=== PATIENT | female | born 1985 | race Caucasian/White ===

== ENCOUNTER 2018-09-12 08:45 | Inpatient (IN) | payer OTHER ==
[2018-09-12] MEDS ORDERED: DEXTROSE 5%-LACTATED RINGERS 1,000 ML IV SCH (08:50)
[2018-09-12] MEDS ORDERED: OXYTOCIN 20 UNITS in 0.9% NS 20 UNIT/1,000 ML INFUS.BAG IV ONE ×2 (08:59→10:48)
[2018-09-12 09:12] LABS: BASO % 0.8 % (0-2.0); EOS % 0.1 % (0-4.5); HEMOGLOBIN 14.1 GM/dL (10.7-15.3); LYMPH % 14.8 % (8-40); MCH 31.7 pg (25.7-33.7); MCHC 34.4 g/dl (32.0-36.0); MEAN CELL VOLUME 92.2 fl (80-96); MEAN PLT VOLUME 8.3 fl (7.5-11.1); MONO % 3.5 % (3.8-10.2); NEUT % 80.8 % (42.8-82.8); PLATELET COUNT 235 K/MM3 (134-434); RBC 4.45 M/mm3 (3.60-5.2); RDW 13.9 % (11.6-15.6); WHITE BLOOD COUNT 10.2 K/mm3 (4.0-10.0)
[2018-09-12] MEDS: OXYTOCIN 20 UNITS in 0.9% NS 20 UNIT/1,000 ML INFUS.BAG IV SCH ×2 (09:15→18:00)
[2018-09-12] MEDS ORDERED: LIDOCAINE HCL 1% PRESERVATIVE FREE - 30ML VIAL ONE (09:15)
[2018-09-12 09:23] VITALS: BMI 39.0
[2018-09-12 09:23] LABS: INR 0.97 (0.83-1.09); PROTHROMBIN TIME (PATIENT) 11.5 SEC (9.7-13.0)
[2018-09-12] MEDS ORDERED: WITCH HAZEL 50% (TUCKS) 40 PAD/JAR PAD TP PRN (09:23)
[2018-09-12] MEDS ORDERED: METHYLERGONOVINE MALEATE 0.2 MG/1 ML AMP IM PRN (09:23)
[2018-09-12] MEDS ORDERED: BENZOCAINE 28 GM HEMORRHOIDAL OINTMENT TP PRN (09:23)
[2018-09-12] MEDS ORDERED: BISACODYL 10 MG SUPP.RECT RC PRN (09:23)
[2018-09-12] MEDS ORDERED: BENZOCAINE 20% 57 GM BOTTLE TP PRN (09:23)
[2018-09-12 09:26] LABS: ACTIVATED PTT 28.3 SECONDS (25.2-36.5)
--- NOTE | 2018-09-12 09:34 | PN ---
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 Meconium noted upon presentation. No anesthesia. Spontaneous delivery of anterior shoulder. Weight pending. Apgars 9/9. Infant placed to Spontaneous delivery intact placenta. 3VC noted. Fundus firm. First degree laceration repaired after 1% local given with 2-0 chromic. Good cosmesis noted. Mother and baby doing well. Karolina Hanson MD
[2018-09-12 09:36] LABS: ANION GAP 12 MMOL/L (8-16); BLOOD UREA NITROGEN 9 mg/dL (7-18); CALCIUM 8.2 mg/dL (8.5-10.1); CHLORIDE 106 mmol/L (98-107); CO2 19 mmol/L (21-32); CREATININE 0.6 mg/dL (0.55-1.3); GLUCOSE,RANDOM 155 mg/dL (74-106); POTASSIUM 3.5 mmol/L (3.5-5.1); SODIUM 136 mmol/L (136-145)
--- NOTE | 2018-09-12 09:38 | HP ---
Past Medical History - Admission Chief Complaint: Labor History of Present Illness: 32yo @ 39+wks here in labor. Regular ctx. +LOF. No VB. +FM Preg c/b prior followed by C/S x 1 for cord prolapse. 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: Alzheimer's, CVA, Dementia, Migraine, Multiple Sclerosis, Peripheral Neuropathy, Parkinson's, Seizure, Syncope, TIA, Vertigo, Other Cardiovascular: No: AFIB, Aneurysm, Aortic Insufficiency, Aortic Stenosis, CAD, CHF, Deep Vein Thrombosis, HTN, Hyperlipdemia, NV, Mitral Insufficiency, Mitral Stenosis, Murmur, Pulmonary Hypertension, Other Pulmonary: No: Asthma, Bronchitis, Cancer, COPD, O2 Dependent, Pneumonia, Previously Intubated, Pulmonary Embolus, Pulmonary Fibrosis, Sleep Apnea, Other Gastrointestinal: No: Ascites, Cancer, Constipation, Crohn's Disease, Diverticulitis, Diverticulosis, Esophageal Varices, Gastritis, GERD, GI Bleed, Hemorrhoids, Hiatal Hernia, Inflamatory Bowel Disease, Irritable Bowel Disease, Pancreatitis, Peptic Ulcer Disease, Ulcerative Colitis, Other ...: 4 ...Para: 2 ...Term: 2 ...: 0 ...Spon : 1 ...Induced : 0 ...Multiple Gestation: 0 ...LMP: 12/09/17 ... Weeks Gestation by Dates: 39.4 ...EDC by Dates: 09/15/18 ...EDC by Sono: 09/15/18 Heme/Onc: No: Anemia, B12 Deficiency, Bleeding Disorder, Cancer, Current Chemotherapy, Current Radiation Therapy, Hemochromatosis, Hypercoaguable State, Myeloproliferative Synd, Sickle Cell Disease, Sickle Cell Trait, Thrombocytopenia, Other Infectious Disease: No: AIDS, C-Diff, Herpes Zoster, HIV, MRSA, STD's, Tuberculosis, VREF, Other Psych: No: Addictions, Anxiety, Bipolar, Depression, Panic, Psychosis, Schizophrenia, Other Musculoskeletal: No: Bursitis, Chronic low back pain, Hemiparesis, Hemiplegia, Osteoarthritis, Paraplegia, Other - Past Surgical History Past Surgical History: Yes: Hx Myomectomy: No Hx Transabdominal Cerclage: No - Smoking History Smoking history: Never smoked Have you smoked in the past 12 months: No - Alcohol/Substance Use Hx Alcohol Use: No History of Substance Use: reports: None - Social History Usual Living Arrangement: Yes: With Spouse History of Recent Travel: No Home Medications - Allergies Allergies/Adverse Reactions: Allergies Allergy/AdvReac Type Severity Reaction Status Date / Time No Known Allergies Allergy Verified 09/12/18 09:29 - Home Medications Home Medications: Ambulatory Orders Prenat 115/Iron Fum/Folic/Dss [ 19 Tablet] 1 tab PO DAILY 09/10/18 Physical Exam - Maternity Vital Signs: Vital Signs Temperature 98.0 F 09/12/18 09:14 Pulse Rate 76 09/12/18 09:14 Respiratory Rate 20 09/12/18 09:14 Blood Pressure 130/83 09/12/18 09:14 O2 Sat by Pulse Oximetry (%) Constitutional: Yes: Well Nourished, No Distress, Calm Eyes: Yes: WNL, Conjunctiva Clear, EOM Intact HENT: Yes: WNL, Atraumatic, Normocephalic Neck: Yes: WNL, Supple, Trachea Midline Cardiovascular: Yes: WNL, Regular Rate and Rhythm Breast(s): Yes: WNL - Abdominal Exam/OB Number of Fetuses: Single Presentation: Vertex Contractions: Yes Regularity: Regular Intensity: Strong Monitor Mode: External Heart Rate (range): Cat I Heart Rate Location: [facility] Category: I Accelerations: Uniform Decelerations: None - Vaginal Exam/OB Vaginal Bleediing: No Speculum Exam: No Dilatation (cm): 10 Effacement (%): 100 Amniotic Membrane Status: Ruptured Amniotic Fluid: Yes: Meconium Stained Meconium: Moderate Presentation: Vertex/Position Station: 0 - Physical Exam Edema: No - Labs Lab Results: CBC, BMP 09/12/18 09:00 Problem List - Problems (1) Uterine contractions Code(s): [id number] - Assessment/Plan 32yo @ 39.4wks here in labor, desires TOLAC. Imminent delivery Admit to L&D Cat I tracing IVFs, NPO Anticipate Neelima Hanson MD
[2018-09-12] MEDS ORDERED: IBUPROFEN 600 MG TABLET (FP) PO ONE (09:59)
[2018-09-12] MEDS ORDERED: ACETAMINOPHEN 325 MG TABLET (FP) ONE (09:59)
[2018-09-12] MEDS: IBUPROFEN 600 MG TABLET (FP) PO PRN ×3 (10:00→18:03)
[2018-09-12] MEDS: ACETAMINOPHEN 325 MG TABLET (FP) PO PRN ×3 (10:00→18:04)
[2018-09-12] MEDS: PRENATAL VITAMINS W/ FOLIC ACID TABLET (FP) PO SCH (11:44)
--- NOTE | 2018-09-13 06:07 | PN ---
Post Progress Note Type of Delivery: Vital Signs: Vital Signs Temperature 98.0 F 09/13/18 02:00 Pulse Rate 77 09/13/18 02:00 Respiratory Rate 18 09/13/18 02:00 Blood Pressure 116/74 09/13/18 02:00 O2 Sat by Pulse Oximetry (%) 98 09/12/18 10:15 Uterus: Yes: Fundus Firm Abdomen/GI: Yes: Abdomen soft Lochia: Yes: Rubra Lochia, amount: Small Extremities: Yes: Calves non-tender Perineum: Yes: Intact, Laceration Activity: Ambulating - Labs Labs: CBC WBC 10.2 K/mm3 (4.0-10.0) H 09/12/18 09:00 RBC 4.45 M/mm3 (3.60-5.2) 09/12/18 09:00 Hgb 14.1 GM/dL (10.7-15.3) 09/12/18 09:00 Hct 41.0 % (32.4-45.2) 09/12/18 09:00 MCV 92.2 fl (80-96) 09/12/18 09:00 MCH 31.7 pg (25.7-33.7) 09/12/18 09:00 MCHC 34.4 g/dl (32.0-36.0) 09/12/18 09:00 RDW 13.9 % (11.6-15.6) 09/12/18 09:00 Plt Count 235 K/MM3 (134-434) 09/12/18 09:00 MPV 8.3 fl (7.5-11.1) 09/12/18 09:00 Absolute Neuts (auto) 8.2 K/mm3 (1.5-8.0) H 09/12/18 09:00 Neutrophils % 80.8 % (42.8-82.8) 09/12/18 09:00 Lymphocytes % 14.8 % (8-40) 09/12/18 09:00 Monocytes % 3.5 % (3.8-10.2) L 09/12/18 09:00 Eosinophils % 0.1 % (0-4.5) 09/12/18 09:00 Basophils % 0.8 % (0-2.0) 09/12/18 09:00 Nucleated RBC % 0 % (0-0) 09/12/18 09:00 Problem List - Problems (1) Uterine contractions Code(s): [id number] - Assessment/Plan 32yo s/p , PPD#1 Routine PP care OOB, ambulate Po pain meds Labs pending Anticipate d/c to home PPD#2 Neelima Hanson MD
[2018-09-13 06:50] LABS: BASO % 0.5 % (0-2.0); EOS % 0.7 % (0-4.5); HEMATOCRIT 36.9 % (32.4-45.2); HEMOGLOBIN 12.7 GM/dL (10.7-15.3); LYMPH % 21.7 % (8-40); MCH 31.6 pg (25.7-33.7); MCHC 34.3 g/dl (32.0-36.0); MEAN CELL VOLUME 92.2 fl (80-96); MEAN PLT VOLUME 7.8 fl (7.5-11.1); MONO % 4.4 % (3.8-10.2); NEUT % 72.7 % (42.8-82.8); PLATELET COUNT 214 K/MM3 (134-434); RDW 14.1 % (11.6-15.6); WHITE BLOOD COUNT 9.3 K/mm3 (4.0-10.0)
[2018-09-13] MEDS: PRENATAL VITAMINS W/ FOLIC ACID TABLET (FP) PO SCH (09:21)
[2018-09-13] MEDS ORDERED: FLU VACCINE QUAD 60 MCG/0.5 ML (MDV 18-19) IM ONE (10:00)
[2018-09-13] MEDS ORDERED: DIPHTH,PERTUSS(ACELL),TET 0.5 ML DISP.SYRIN IM ONE (10:00)
[2018-09-13] MEDS: OXYTOCIN 20 UNITS in 0.9% NS 20 UNIT/1,000 ML INFUS.BAG IV SCH (19:53)
[2018-09-13] MEDS ORDERED: SENNOSIDES/DOCUSATE COMBO (SENNA PLUS) TABLET (UD) PO PRN (22:00)
[2018-09-14 08:22] VITALS: BP 116/67; PULSE 80; TEMP 98.2
--- NOTE | 2018-09-14 08:30 | DS ---
Physical Examination Vital Signs: Vital Signs Temperature 98.2 F 09/14/18 08:20 Pulse Rate 80 09/14/18 08:20 Respiratory Rate 20 09/14/18 08:20 Blood Pressure 116/67 09/14/18 08:20 O2 Sat by Pulse Oximetry (%) 98 09/12/18 10:15 Constitutional: Yes: Well Nourished, No Distress, Calm Eyes: Yes: WNL, Conjunctiva Clear, EOM Intact HENT: Yes: WNL, Atraumatic, Normocephalic Neck: Yes: WNL, Supple, Trachea Midline Cardiovascular: Yes: WNL, Regular Rate and Rhythm Respiratory: Yes: WNL, Regular, CTA Bilaterally Gastrointestinal: Yes: WNL, Normal Bowel Sounds Musculoskeletal: Yes: WNL Extremities: Yes: WNL Edema: No Integumentary: Yes: WNL Neurological: Yes: WNL, Alert, Oriented ...Motor Strength: WNL Psychiatric: Yes: WNL Labs: CBC, BMP 09/13/18 05:20 09/12/18 09:00 Discharge Summary Reason For Visit: LABOR Current Active Problems Uterine contractions (Acute) Procedures: Principal: Other Procedures: Hospital Course: Patient presented in active labor She had a successful Her course was unremarkable She was discharged home on PPD#2 Condition: Stable - Instructions Diet, Activity, Other Instructions: Regular Diet Referrals: Karolina Hanson MD [Staff Physician] - Disposition: HOME - Home Medications Comprehensive Discharge Medication List: Ambulatory Orders Prenat 115/Iron Fum/Folic/Dss [ 19 Tablet] 1 tab PO DAILY 09/10/18 Ibuprofen 600 mg PO Q6H PRN #30 tablet 09/13/18
[2018-09-14] MEDS: PRENATAL VITAMINS W/ FOLIC ACID TABLET (FP) PO SCH (09:24)
== END 2018-09-14 11:00 | disposition home or self-care (01) | DRG 560 ==
LOC: JLDR 08:45 → J3W 10:58
PROVIDERS: ADMIT Obstetrics & Gynecology; ATTEND Obstetrics & Gynecology
PROC: 10E0XZZ Delivery of Products of Conception, External Approach (ICD-10-PCS; principal; 2018-09-12)
PROC: 0W8NXZZ Division of Female Perineum, External Approach (ICD-10-PCS; 2018-09-12)
PROC: 0HQ9XZZ Repair Perineum Skin, External Approach (ICD-10-PCS; 2018-09-12)
DX: O70.0 First degree perineal laceration during delivery (principal); O34.211 Maternal care for low transverse scar from previous cesarean delivery; N85.8 Other specified noninflammatory disorders of uterus; Z3A.39 39 weeks gestation of pregnancy; Z37.0 Single live birth
CPT/HCPCS: 36415; 59025; 59409; 71045-TC-FY; 76801-TC; 80048; 85025; 85610; 85730; 86593; 86850; 86900; 86901; 90686; 90715; G0008